=== PATIENT | female | born 1975 | race Caucasian/White ===

== ENCOUNTER 2016-02-28 09:51 | Emergency (ER) | payer MEDICAID ==
[~2016-02-28] VITALS: Ht 157.5 cm; Wt 55.0 kg
[~2016-02-28 09:51] MED LIST: ALBU8.5H3 INH; BENZ100C70 PO; CYCL-319 PO; FLUT9.9S NASAL; HYDR-906 PO; IBUP-1542 PO; PSEU30TA38 PO
[2016-02-28 10:02] VITALS: Ht 157.5 cm; Wt 55.0 kg
[2016-02-28] MEDS ORDERED: IBUP-1542 PO (10:27)
--- NOTE | 2016-02-28 10:30 | ERD ---
ER Documentation Chief Complaint Date/Time DATE: 02/28/16 TIME: 10:29 Chief Complaint back pain chronic cough had PNA in january HPI 40-year-old female presents the emergency department complaining of low back pain. Patient states she has a long-standing history of scoliosis. Yesterday, after bending down to pick something up, she feels as if she exacerbated her low back pain. She reports isolated low back pain without radiation. She reports no numbness, tingling, fevers, chills, bowel or bladder incontinence. She currently reports the pain is moderate to severe. ROS All systems reviewed and are negative except as per history of present illness. Medications Home Meds Active Scripts Ibuprofen* (Motrin*) 600 Mg Tab, 600 MG PO Q6H Y for PAIN AND OR ELEVATED TEMP, #30 TAB Prov:NERY JOSEPH 02/28/16 Ibuprofen* (Motrin*) 600 Mg Tab, 600 MG PO Q6H Y for PAIN AND OR ELEVATED TEMP, #30 TAB Prov:CHRISTINE HERNANDEZ NP 12/06/15 Cyclobenzaprine Hcl* (Cyclobenzaprine Hcl*) 10 Mg Tablet, 10 MG PO TID, #15 TAB Prov:CHRISTINE HERNANDEZ NP 12/06/15 Hydrocodone/Acetaminophen ([place] 5-325 Tablet) 1 Each Tablet, 1 TAB PO Q6H Y for PAIN, #7 TAB Prov:CHRISTINE HERNANDEZ NP 12/06/15 Albuterol Sulfate* (Proair HFA*) 8.5 Gm Hfa.aer.ad, 2 PUFF INH Q4, #1 INHALER Prov:GENE SMITH PA-C 03/06/15 Benzonatate* (Tessalon Perle*) 100 Mg Capsule, 100 MG PO Q8H Y for COUGH, #30 CAP Prov:GENE SMITH PA-C 03/06/15 Fluticasone Propionate (Flonase Allergy Relief) 9.9 Ml [place].susp, 1 SPRAY NASAL DAILY, #1 BOTTLE TO EACH NOSTRIL Prov:GENE SMITH PA-C 03/06/15 Pseudoephedrine Hcl* (Pseudoephedrine Hcl*) 30 Mg Tablet, 30 MG PO Q6 Y for CONGESTION, #30 TAB Prov:GENE SMITH PA-C 03/06/15 Allergies Allergies: Coded Allergies: No Known Allergies (Verified Allergy, Mild, 03/29/14) PMhx/Soc History of Surgery: No Anesthesia Reaction: No Hx Neurological Disorder: No Hx Respiratory Disorders: Yes (ASTHMA; SCOLIOSIS.) Hx Cardiac Disorders: No Hx Psychiatric Problems: Yes (ANXIETY) Hx Miscellaneous Medical Probl: No Hx Alcohol Use: Yes Hx Substance Use: No Hx Tobacco Use: Yes FmHx Noncontributory for chief complaint Physical Exam Vitals Vital Signs Date Time Temp Pulse Resp B/P Pulse Ox O2 Delivery O2 Flow Rate FiO2 02/28/16 10:02 97.9 129 18 162/108 99 Physical Exam General: well developed, well nourished, in no distress. Neuro: Normal speech, gait, balance Back: No midline spinal tenderness or spasm. No step-off. Procedures/MDM Patient was taken to a room, seen and evaluated. Comfort measures were initiated. Patient was taken to a room, seen and examined Medical decision making: Patient presents today with atraumatic back pain. Although infection, malignancy, GI, , and vascular causes have been considered in this patient, the patients clinical presentation is most consistent with a musculoskeletal cause. There is neither evidence of any acute neurologic damage, nor of loss of function and thus, advanced imaging studies have been deferred. Patient will be treated conservatively with appropriate pain control with precautionary discharge instructions provided. Departure Diagnosis: Primary Impression: Back pain Condition: Stable Patient Instructions: Back Pain (Acute Or Chronic) NERY JOSEPH Feb 28, 2016 10:30
== END 2016-02-28 11:06 | disposition home or self-care (01) ==
LOC: E/R 09:51
DX: M54.5 Low back pain (principal); J45.909 Unspecified asthma, uncomplicated; Z87.891 Personal history of nicotine dependence
CPT/HCPCS: 99283

== ENCOUNTER 2016-03-15 08:45 | Emergency (ER) | payer MEDICAID ==
[~2016-03-15] VITALS: Wt 64.0 kg
--- NOTE | 2016-03-15 09:45 | ERD ---
ER Documentation Chief Complaint Date/Time DATE: 03/15/16 TIME: 09:30 Chief Complaint vag bleeding since this morning. early . no dysuria , low abd pain HPI 40 y/o female presents to ED for vaginal bleeding and lower abdominal cramping. Her symptoms started this morning. Stated that she saw a "watery blood " that came out of her vaginal area. Pain was described as crampy and nonradiating, with a rate of 10/10 at this time. Found out that she is yesterday when she did a home test. Then she went to a mother's clinic. Was told that she is . No ultrasound was done. Also added that she has chills but never took her temp at home. Also reports constipation for about 5 days. Denies headache, loss of consciousness, dizziness, blurry vision, changes in vision, photophobia, facial pain, ear pain, throat pain, difficulty swallowing, neck pain, shoulder pain, chest pain, cough, hemoptysis, back pain, loss of appetite, nausea, vomiting, hematochezia, diarrhea, bladder and bowel incontinences, extremity weakness, extremity tenderness, numbness or tingling sensation, difficulty walking, recent travel, recent exposure to illness, recent antibiotic use in the last 3 months, fever. Allergy: NKA PMH: Asthma, scoliosis. Family medical history: G13(approximately)M2(one was twins). Unclear of number of pregnancies. LMP: 01/05/16 Medications: States that she is not taking any medications at this time. Surgery: C-sections 2 Primary Social History: Student Smokes less than a pack of cigarettes a day. Denies use of alcohol, use of illegal drugs. ROS All systems reviewed and are negative except as per history of present illness. Medications Home Meds Active Scripts Acetaminophen* (Tylenol*) 325 Mg Tablet, 2 TAB PO Q6 Y for prn, #20 TAB Prov:SYDNEY BONE F 03/15/16 Cephalexin* (Keflex*) 500 Mg Capsule, 500 MG PO QID for 7 Days, CAP Prov:PASILABAN,KENJIAR F 03/15/16 Ibuprofen* (Motrin*) 600 Mg Tab, 600 MG PO Q6H Y for PAIN AND OR ELEVATED TEMP, #30 TAB Prov:NERY JOSEPH 02/28/16 Ibuprofen* (Motrin*) 600 Mg Tab, 600 MG PO Q6H Y for PAIN AND OR ELEVATED TEMP, #30 TAB Prov:CHRISTINE HERNANDEZ NP 12/06/15 Cyclobenzaprine Hcl* (Cyclobenzaprine Hcl*) 10 Mg Tablet, 10 MG PO TID, #15 TAB Prov:CHRISTINE HERNANDEZ NP 12/06/15 Hydrocodone/Acetaminophen ([place] 5-325 Tablet) 1 Each Tablet, 1 TAB PO Q6H Y for PAIN, #7 TAB Prov:CHRISTINE HERNANDEZ NP 12/06/15 Albuterol Sulfate* (Proair HFA*) 8.5 Gm Hfa.aer.ad, 2 PUFF INH Q4, #1 INHALER Prov:GENE SMITH PA-C 03/06/15 Benzonatate* (Tessalon Perle*) 100 Mg Capsule, 100 MG PO Q8H Y for COUGH, #30 CAP Prov:GENE SMITH PA-C 03/06/15 Fluticasone Propionate (Flonase Allergy Relief) 9.9 Ml [place].susp, 1 SPRAY NASAL DAILY, #1 BOTTLE TO EACH NOSTRIL Prov:GENE SMITH PA-C 03/06/15 Pseudoephedrine Hcl* (Pseudoephedrine Hcl*) 30 Mg Tablet, 30 MG PO Q6 Y for CONGESTION, #30 TAB Prov:GENE SMITH PA-C 03/06/15 Allergies Allergies: Coded Allergies: No Known Allergies (Verified Allergy, Mild, 03/15/16) PMhx/Soc History of Surgery: No Anesthesia Reaction: No Hx Neurological Disorder: No Hx Respiratory Disorders: Yes (ASTHMA; SCOLIOSIS.) Hx Cardiac Disorders: No Hx Psychiatric Problems: Yes (ANXIETY) Hx Miscellaneous Medical Probl: No Hx Alcohol Use: Yes Hx Substance Use: No Hx Tobacco Use: Yes FmHx Denies Physical Exam Vitals Vital Signs Date Time Temp Pulse Resp B/P Pulse Ox O2 Delivery O2 Flow Rate FiO2 03/15/16 08:48 98.8 102 18 130/95 99 Physical Exam CONSTITUTIONAL: Well-appearing; well-nourished; in no apparent distress. HEAD: Normocephalic; atraumatic. EYES: Conjunctiva clear, sclera non-icteric, EOM intact. PERRL Ears: Hearing intact. EACs clear, TMs non-bulging, non-inflamed, translucent & mobile, ossicles normal appearance, No obstructions, no erythema, no discharges Nose: No obstructions. No polyps. No external lesions. Mucosa non-inflamed. No external lesions, septum and turbinates normal. No rhinorrhea. No discharges. Frontal sinus is non-tender to palpation. Maxillary sinus is non-tender to palpation. MOUTH: Moist mucous membranes, no lesion, no obstructions, no vesicles, no thrush, patent airway Throat: Uvula in midline. Right tonsil is +1 with no erythema, no exudate. Left tonsil is +1 with no erythema, no exudate. Tolerating secretions well. Good gag reflex. Patent airway. Neck: Supple, without lesions, bruits, or adenopathy. No mass. Thyroid non- enlarged and non-tender to palpation. CHEST: Symmetrical chest. Respirations even and not labored. No retractions noted. CARDIOVASCULAR: Normal S1, S2. RRR. No murmurs, gallops. RESPIRATORY: Normal chest excursion with respiration; breath sounds clear and equal bilaterally; no wheezes, rhonchi, or rales. Breathing even and unlabored. Speaking in clear, full, and complete sentences w/ ease. ABDOMEN: Normal bowel sounds normal. Tenderness to lower abdominal area on light and deep palpation. Soft, round, non-distended, non-guarding, no rebound, no organomegaly, no masses, no pulsating abdominal mass. No hernia. No peritoneal signs. : No CVA tenderness. BACK: Symmetrical shoulder. Spine is midline without deformity, tenderness. No evidence of trauma or deformity. PELVIS: Stable pelvis. No evidence of trauma or deformity. MUSCULOSKELETAL: Normal gait and station. No misalignment, asymmetry, crepitation, defects, tenderness, masses, effusions, decreased range of motion, instability, atrophy or abnormal strength or tone in the head, neck, spine, ribs , pelvis or extremities. No calf tenderness. NEUROVASCULAR: Distal pulses are present. Pedal pulse are present, equal, and normal. Capillary refills are < 2 seconds. NEUROLOGIC: Alert and oriented x4. Speaks full and clear sentences. Cranial Nerves II-XII normal. Sensation to pain, touch, and proprioception normal. PSYCHOLOGICAL: The patients mood and manner are appropriate. No hallucinations , delusions. Not SI. Not HI. Has the capacity to decide for self SKIN: Normal for age and ethnicity; warm; dry; good turgor; no apparent lesions or exudates. No rashes, hives, discoloration. Intact. Result Diagram: 03/15/16 0953 Results 24 hrs Laboratory Tests Test 03/15/16 09:53 Basophils # 0.110^3/ul Basophils % 0.5% Beta HCG, Quantitative 18507.0mIU/ml Blood Morphology Comment Eosinophils # 0.110^3/ul Eosinophils % 0.9% Hematocrit 41.0% Hemoglobin 13.6g/dl Lymphocytes # 1.410^3/ul Lymphocytes % 8.7% Mean Corpuscular Hemoglobin 27.6pg Mean Corpuscular Hemoglobin Concent 33.1g/dl Mean Corpuscular Volume 83.4fl Mean Platelet Volume 9.1fl Monocytes # 0.810^3/ul Monocytes % 5.3% Neutrophils # 13.310^3/ul Neutrophils % 84.6% Nucleated Red Blood Cells # 0.010^3/ul Nucleated Red Blood Cells % 0.0/100WBC Platelet Count 27042^3/UL Red Blood Count 4.9110^6/ul Red Cell Distribution Width 13.9% Urine Bacteria FEW Urine Bilirubin NEGATIVE Urine Clarity CLEAR Urine Color LT. YELLOW Urine Epithelial Cells FEW Urine Glucose NEGATIVE% Urine Hemoglobin 3+ Urine Ketones NEGATIVE Urine Leukocyte Esterase 2+ Urine Microscopic RBC 0-2/HPF Urine Microscopic WBC 5-10/HPF Urine Nitrite NEGATIVE Urine Specific [place] <=1.005 Urine Total Protein NEGATIVE Urine Urobilinogen 0.2 E.U./dL Urine pH 6.0 White Blood Count 15.810^3/ul Procedures/MDM Examination: Unremarkable examination except lower abdominal tenderness on mild and deep palpation. Disease process, medical treatment was explained to the patient and family member. They verbalized understanding and agreed with the diagnostic tests, medical treatment, and follow-up care. Radiology: Transabdominal, pelvis ultrasound revealed single intrauterine gestation with crown-rump length measuring 1.0 cm, corresponding to a gestational age of 7 weeks and 2 days. The heart rate is noted at 156 bpm. The ovaries are not visualized. There is no free fluid. Impression: Single live intrauterine with an estimated gestational age of 7 weeks and 2 days, based on ultrasound measurements. Blood works unremarkable except mildly elevated [place]BCs[place] [address].0 mIUL. Blood type O negative Urinalysis: WBCs 5-10 leukocytes 2+. Treatment: Tylenol p.o. RhoGam. No reactions. Tolerated well. Re-evaluation: Patient relieved the pain. Denies active bleeding. Consultation: None Differential diagnosis considered are Ectopic versus demise versus vaginal bleeding, symptomatic anemia,, pyelonephritis, appendicitis, ovarian torsion, tubo-ovarian abscess. Medical decision makin40 y/o female presents to ED for vaginal bleeding and lower abdominal cramping. Her symptoms started this morning. Stated that she saw a "watery blood" that came out of her vaginal area. Pain was described as crampy and nonradiating, with a rate of 10/10 at this time. Found out that she is yesterday when she did a home test. Then she went to a mother's clinic. Was told that she is . No ultrasound was done yesterday. Also added that she has chills but never took her temp at home. Also reports constipation for about 5 days. Blood works unremarkable except mildly elevated WBCs, O-negative on blood type(Rhogam ordered and administered). Urinalysis revealed 5-10 WBCs, 2+ leukocytes[place] [address].0 mIUL. Low suspicion for ectopic , demise, symptomatic anemia,, pyelonephritis, appendicitis, ovarian torsion, tubo-ovarian abscess. Discharged with final diagnosis of vaginal bleeding in , urinary tract infection. Medications prescribed are the following: Keflex PO,Tylenol Patient and family member are made aware of the side effects and adverse reactions of the medications prescribed. Instructed on when to seek emergent and medical attention in case allergic/anaphylactic reactions or severe side effects and or adverse reactions to medications. Patient and family member verbalized understanding. Patient instructed Instructed to follow-up with his PCP in 24-48 hours. PCP to refer patient to OB 24-48 hours. Also specifically instructed to have her beta hCG quant re-check in 48 hours. Patient stated that she will see her OB in the next 24-48 hours. Instructed to Call 911 for chest pain, shortness of breath. Advised to come back here in ED as soon as possible for severity of symptoms which includes but not limited to: any new symptoms; shortness of breath/difficulty of breathing; cardiovascular changes; severe gastrointestinal symptoms; signs and symptoms of bleeding and or infection; signs of compartment syndrome/neurovascular changes; neurological changes/deficits. Patient and family member verbalized understanding. Upon discharge, patient is alert and oriented x 4, speaks full and clear sentences, denies pain, has no neurological deficits, has no neurovascular deficits, difficulty of breathing. Breathing even and unlabored. Lung sounds are clear to auscultation. Not in distress. No abdominal pain. No active bleeding. Appears comfortable. Ambulatory with steady gait. Appears satisfied with care provided here in ED. Departure Condition: Good Additional Instructions: Patient instructed Instructed to follow-up with his PCP in 24-48 hours. PCP to refer patient to OB 24-48 hours. Also specifically instructed to have her beta hCG quant re-check in 48 hours. Patient stated that she will see her OB in the next 24-48 hours. Instructed to Call 911 for chest pain, shortness of breath. Advised to come back here in ED as soon as possible for severity of symptoms which includes but not limited to: any new symptoms; shortness of breath/difficulty of breathing; cardiovascular changes; severe gastrointestinal symptoms; signs and symptoms of bleeding and or infection; signs of compartment syndrome/neurovascular changes; neurological changes/deficits. Patient and family member verbalized understanding. SYDNEY BONE Mar 15, 2016 09:45
[2016-03-15 10:19] LABS: BASOPHIL # 0.1 10^3/ul (0.0-0.1); BASOPHILS % 0.5 % (0.0-2.0); EOSINOPHILS # 0.1 10^3/ul (0.0-0.5); EOSINOPHILS % 0.9 % (0.0-7.0); HEMOGLOBIN 13.6 g/dl (12.0-16.0); LYMPHOCYTES # 1.4 10^3/ul (0.8-2.9); LYMPHOCYTES % 8.7 % (15.0-51.0); MEAN CORPUSCULAR HEMOGLOBIN 27.6 pg (29.0-33.0); MEAN CORPUSCULAR HGB CONC 33.1 g/dl (32.0-37.0); MEAN CORPUSCULAR VOLUME 83.4 fl (82.0-101.0); MEAN PLATELET VOLUME 9.1 fl (7.4-10.4); MONOCYTE # 0.8 10^3/ul (0.3-0.9); MONOCYTES % 5.3 % (0.0-11.0); NEUTROPHIL # 13.3 10^3/ul (1.6-7.5); NEUTROPHILS % 84.6 % (39.0-77.0); PLATELET COUNT 256 10^3/UL (140-440); RED BLOOD COUNT 4.91 10^6/ul (4.20-5.40); RED CELL DISTRIBUTION WIDTH 13.9 % (11.5-14.5); UNCORRECTED WBC 15.8 10^3/ul (4.8-10.8); WHITE BLOOD COUNT 15.8 10^3/ul (4.8-10.8)
[2016-03-15 10:28] LABS: ADD UMIC YES; URINE BILIRUBIN (Dip) NEGATIVE (NEGATIVE); URINE BLOOD (Dip) 3+ (NEGATIVE); URINE COLOR LT. YELLOW (YELLOW); URINE GLUCOSE (Dip) NEGATIVE (NEGATIVE); URINE KETONES (Dip) NEGATIVE (NEGATIVE); URINE LEUKOCYTE ESTERASE (Dip) 2+ (NEGATIVE); URINE NITRITE (Dip) NEGATIVE (NEGATIVE); URINE TOTAL PROTEIN (Dip) NEGATIVE (NEGATIVE); URINE UROBILINOGEN (Dip) 0.2 E.U./dL (0.1-1.0)
[2016-03-15 10:29] LABS: CONDITION 1
--- NOTE | 2016-03-15 10:32 | RADRPT ---
PROCEDURE: US OB. CLINICAL INDICATION: Vaginal bleeding TECHNIQUE: Transabdominal views of the pelvis are available for review. COMPARISON: No prior studies are available for comparison. FINDINGS: There is a single intrauterine gestation with the crown-rump length measuring 1.0 cm, corresponding to a gestational age of 7 weeks and 2 days. The heart rate is noted at 156 bpm. The ovaries are not visualized. There is no free fluid. RPTAT: AA IMPRESSION: Single live intrauterine with an estimated gestational age of 7 weeks and 2 days, based on ultrasound measurements. MORE based on ultrasound measurements is 10/30/16. .Souleymane Gallegos MD, MD Date Time Electronically viewed and signed by .Souleymane Gallegos MD, on 03/15/2016 10:32 .S/
[2016-03-15 11:07] LABS: URINE RBCS 0-2 /HPF (0)
[2016-03-15 11:08] LABS: BACTERIA,URINE FEW
[2016-03-15] MEDS ORDERED: CEPH-443 PO (11:32)
[2016-03-15] MEDS ORDERED: ACET325T33 PO (11:37)
[2016-03-15 12:02] VITALS: BP 125/88; PULSE 66; RESP 18; TEMP 98.8
== END 2016-03-15 12:02 | disposition home or self-care (01) ==
LOC: FTE 08:45
DX: O20.9 Hemorrhage in early pregnancy, unspecified (principal); O99.331 Smoking (tobacco) complicating pregnancy, first trimester; F17.210 Nicotine dependence, cigarettes, uncomplicated; O99.511 Diseases of the respiratory system complicating pregnancy, first trimester; J45.909 Unspecified asthma, uncomplicated; O23.41 Unspecified infection of urinary tract in pregnancy, first trimester; Z3A.01 Less than 8 weeks gestation of pregnancy
CPT/HCPCS: 36415; 76801; 81001; 84702; 85025; 86900; 86901; J2790; Z7502; 81003

== ENCOUNTER 2016-06-01 11:14 | Emergency (ER) | payer MEDICAID, OTHER ==
[~2016-06-01] VITALS: Ht 162.6 cm; Wt 60.0 kg
[~2016-06-01 11:14] MED LIST changes: +ACET325T33 PO; +CEPH-443 PO
[2016-06-01 11:20] VITALS: Ht 162.6 cm; Wt 60.0 kg
[2016-06-01 12:19] LABS: ADD SCAN DIFF NO
[2016-06-01 12:24] LABS: ADD UMIC YES; BASOPHIL # 0.1 10^3/ul (0.0-0.1); BASOPHILS % 0.6 % (0.0-2.0); EOSINOPHILS # 0.2 10^3/ul (0.0-0.5); EOSINOPHILS % 1.1 % (0.0-7.0); LYMPHOCYTES # 2.3 10^3/ul (0.8-2.9); LYMPHOCYTES % 16.5 % (15.0-51.0); MEAN CORPUSCULAR HEMOGLOBIN 29.5 pg (29.0-33.0); MEAN CORPUSCULAR HGB CONC 33.3 g/dl (32.0-37.0); MEAN CORPUSCULAR VOLUME 88.4 fl (82.0-101.0); MEAN PLATELET VOLUME 10.3 fl (7.4-10.4); MONOCYTE # 0.8 10^3/ul (0.3-0.9); NEUTROPHIL # 10.6 10^3/ul (1.6-7.5); NEUTROPHILS % 75.3 % (39.0-77.0); PLATELET COUNT 360 10^3/UL (140-415); RED BLOOD COUNT 4.41 10^6/ul (4.20-5.40); RED CELL DISTRIBUTION WIDTH 13.2 % (11.5-14.5); URINE BILIRUBIN (Dip) NEGATIVE (NEGATIVE); URINE BLOOD (Dip) TRACE (NEGATIVE); URINE COLOR LT. YELLOW (YELLOW); URINE GLUCOSE (Dip) NEGATIVE (NEGATIVE); URINE KETONES (Dip) NEGATIVE (NEGATIVE); URINE LEUKOCYTE ESTERASE (Dip) 2+ (NEGATIVE); URINE NITRITE (Dip) NEGATIVE (NEGATIVE); URINE TOTAL PROTEIN (Dip) NEGATIVE (NEGATIVE); URINE UROBILINOGEN (Dip) 0.2 E.U./dL (0.1-1.0)
[2016-06-01 12:28] LABS: URINE RBCS 0-2 /HPF (0)
--- NOTE | 2016-06-01 13:26 | RADRPT ---
PROCEDURE: US OB CLINICAL INDICATION: Vaginal Bleed () TECHNIQUE: Multiple sonographic images of the pelvis were obtained. The images were reviewed on a PACS workstation. COMPARISON: Obstetrical ultrasound from 03/15/2016 FINDINGS: The cervix is not well visualized. Bilateral adnexa are unremarkable. There is a single viable intrauterine gestation. Cardiac activity is present with 152 beats per minute. There is a vertex presentation. The placenta is anterior. There is no evidence for an abruption or placenta previa. There is a normal amount of amniotic fluid with in maximum vertical pocket of 4.5 cm. Measurements were made in order to determine age. The results are as follows (cm): BPD =4.12 HC =15.45 AC =13.95 FL =2.78 Estimated gestational age by ultrasound of approximately 18 weeks, 5 days. The estimated date of delivery by ultrasound is 10/28/2016. Reported gestational age by LMP of approximately 18 weeks, 2 days. The report date of delivery by LMP is eased 10/31/2016. EFW = 262 grams (80th percentile) IMPRESSION: Single viable intrauterine gestation of approximately 18 weeks, 5 days . The estimated date of delivery is 10/28/2016 . Dating by ultrasound is within 3 days of dating by LMP. Estimated weight is in the 80th percentile. Anterior placenta without evidence of a placental abruption or placenta previa. RPTAT: EE Physician Mane Date Time Electronically viewed and signed by Physician Mane on 06/01/2016 13:25 /
[2016-06-01] MEDS ORDERED: CEPH-443 PO (14:08)
[2016-06-01] MEDS ORDERED: ACET500C5 PO (14:08)
--- NOTE | 2016-06-01 14:21 | ERD ---
ER Documentation Chief Complaint Date/Time DATE: 06/01/16 TIME: 14:13 Chief Complaint pt bib family with c/o vag bleeding starting this am, approx 15 wks pregnan HPI Patient is a 40-year-old female with a past medical history of asthma, G 13 M2?, approximately 15 weeks , who comes emergency department with vaginal bleeding that started this morning. Patient reports some vaginal spotting and pelvic cramping. Patient denies any pad use. Patient also does report some intermittent fevers and chills however she is currently fighting a URI. Patient reports a dry cough, rhinorrhea and mild throat irritation. Patient denies any trismus, drooling or hyperextension of her neck. Patient denies any nausea, vomiting, chest pain, shortness of breath, abdominal pain, excessive vaginal discharge. Patient reports normal bowel movements. Patient denies any pain with urination. Patient has been care throughout her . 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 Of note, patient was seen here on 03/15/16 her vaginal bleeding. Patient was noted to be Rh- at that time. Patient was given RhoGam at that time. Documentation noted in the patient's chart. ROS All systems reviewed and are negative except as per history of present illness. Medications Home Meds Active Scripts Cephalexin* (Keflex*) 500 Mg Capsule, 500 MG PO QID for 7 Days, CAP Prov:DANA BATRES-C 06/01/16 Acetaminophen* (Tylophen*) 500 Mg Capsule, 1 CAP PO Q6H Y for PAIN AND OR ELEVATED TEMP, #20 CAP Prov:DANA BATRES PA-C 06/01/16 Acetaminophen* (Tylenol*) 325 Mg Tablet, 2 TAB PO Q6 Y for prn, #20 TAB Prov:PASILABAN,KLAR F 03/15/16 Cephalexin* (Keflex*) 500 Mg Capsule, 500 MG PO QID for 7 Days, CAP Prov:PASILABAN,KLAR F 03/15/16 Ibuprofen* (Motrin*) 600 Mg Tab, 600 MG PO Q6H Y for PAIN AND OR ELEVATED TEMP, #30 TAB Prov:NERY JOSEPH 02/28/16 Ibuprofen* (Motrin*) 600 Mg Tab, 600 MG PO Q6H Y for PAIN AND OR ELEVATED TEMP, #30 TAB Prov:CUISIA,CHRISTINE LOU T. LCSW 12/06/15 Cyclobenzaprine Hcl* (Cyclobenzaprine Hcl*) 10 Mg Tablet, 10 MG PO TID, #15 TAB Prov:CHRISTINE HERNANDEZ NP 12/06/15 Hydrocodone/Acetaminophen ([place] 5-325 Tablet) 1 Each Tablet, 1 TAB PO Q6H Y for PAIN, #7 TAB Prov:CHRISTINE HERNANDEZ NP 12/06/15 Albuterol Sulfate* (Proair HFA*) 8.5 Gm Hfa.aer.ad, 2 PUFF INH Q4, #1 INHALER Prov:GENE SMITH PA-C 03/06/15 Benzonatate* (Tessalon Perle*) 100 Mg Capsule, 100 MG PO Q8H Y for COUGH, #30 CAP Prov:GENE SMITH PA-C 03/06/15 Fluticasone Propionate (Flonase Allergy Relief) 9.9 Ml [place].susp, 1 SPRAY NASAL DAILY, #1 BOTTLE TO EACH NOSTRIL Prov:GENE SMITH PA-C 03/06/15 Pseudoephedrine Hcl* (Pseudoephedrine Hcl*) 30 Mg Tablet, 30 MG PO Q6 Y for CONGESTION, #30 TAB Prov:GENE SMITH PA-C 03/06/15 Allergies Allergies: Coded Allergies: No Known Allergies (Verified Allergy, Mild, 03/15/16) PMhx/Soc History of Surgery: No Anesthesia Reaction: No Hx Neurological Disorder: No Hx Respiratory Disorders: Yes (ASTHMA; SCOLIOSIS.) Hx Cardiac Disorders: No Hx Psychiatric Problems: Yes (ANXIETY) Hx Miscellaneous Medical Probl: No Hx Alcohol Use: Yes Hx Substance Use: No Hx Tobacco Use: Yes Smoking Status: Never smoker Physical Exam Vitals Vital Signs Date Time Temp Pulse Resp B/P Pulse Ox O2 Delivery O2 Flow Rate FiO2 06/01/16 11:20 98.3 117 18 151/95 99 Physical Exam GENERAL: Well-developed, well-nourished female. Appears in no acute distress. HEAD: Normocephalic, atraumatic. EYES: Pupils are equally reactive bilaterally. EOMs grossly intact. No conjunctival erythema. ENT: Moist mucous membranes. No uvula deviation. No kissing tonsils. NECK: Supple. No meningismus. Normal range of motion of the neck. LUNG: Clear to auscultation bilaterally. No rhonchi, wheezing, rales or coarse breath sounds. HEART: Regular rate and rhythm. No murmurs, rubs or gallops. ABDOMEN: No scars, ecchymosis or rashes noted. Soft, nontender, and nondistended. Positive bowel sounds in all four quadrants. No rebound tenderness , no guarding. (-) McBurney's point tenderness. No CVA tenderness. BACK: No midline tenderness. EXTREMITIES: Equal pulses bilaterally. No peripheral clubbing, cyanosis or edema. No unilateral leg swelling. NEUROLOGIC: Alert and oriented. Moving all four extremities without any difficulty. Normal speech. Steady gait. SKIN: Normal color. Warm and dry. No rashes or lesions. Result Diagram: 06/01/16 1205 Results 24 hrs Laboratory Tests Test 06/01/16 12:05 White Blood Count 14.010^3/ul Red Blood Count 4.4110^6/ul Hemoglobin 13.0g/dl Hematocrit 39.0% Mean Corpuscular Volume 88.4fl Mean Corpuscular Hemoglobin 29.5pg Mean Corpuscular Hemoglobin Concent 33.3g/dl Red Cell Distribution Width 13.2% Platelet Count 79459^3/UL Mean Platelet Volume 10.3fl Neutrophils % 75.3% Lymphocytes % 16.5% Monocytes % 6.0% Eosinophils % 1.1% Basophils % 0.6% Nucleated Red Blood Cells % 0.0/100WBC Neutrophils # 10.610^3/ul Lymphocytes # 2.310^3/ul Monocytes # 0.810^3/ul Eosinophils # 0.210^3/ul Basophils # 0.110^3/ul Nucleated Red Blood Cells # 0.010^3/ul Urine Color LT. YELLOW Urine Clarity SLIGHTLY CLOUDY Urine pH 7.0 Urine Specific [place] 1.010 Urine Ketones NEGATIVE Urine Nitrite NEGATIVE Urine Bilirubin NEGATIVE Urine Urobilinogen 0.2 E.U./dL Urine Leukocyte Esterase 2+ Urine Microscopic RBC 0-2/HPF Urine Microscopic WBC 5-10/HPF Urine Epithelial Cells FEW Urine Hemoglobin TRACE Urine Glucose NEGATIVE% Urine Total Protein NEGATIVE Beta HCG, Quantitative 85840.0mIU/ml Procedures/MDM ED COURSE: The patient was stable throughout ED course. I kept the patient and/or family informed of laboratory and diagnostic imaging results throughout the ED course. DIAGNOSTIC IMAGING: Read by radiologist. DIAGNOSTIC IMAGING REPORT Patient: NANCY HURST : 1975 Age: 40 Sex: F MR #: [id number] DOS: 06/01/16 1156 Ordering MD: DANA BATRES PA-C Location: [facility] Room/Bed: PROCEDURE: US OB CLINICAL INDICATION: Vaginal Bleed () TECHNIQUE: Multiple sonographic images of the pelvis were obtained. The images were reviewed on a PACS workstation. COMPARISON: Obstetrical ultrasound from 03/15/2016 FINDINGS: The cervix is not well visualized. Bilateral adnexa are unremarkable. There is a single viable intrauterine gestation. Cardiac activity is present with 152 beats per minute. There is a vertex presentation. The placenta is anterior. There is no evidence for an abruption or placenta previa. There is a normal amount of amniotic fluid with in maximum vertical pocket of 4.5 cm. Measurements were made in order to determine age. The results are as follows (cm): BPD = 4.12 HC = 15.45 AC = 13.95 FL = 2.78 Estimated gestational age by ultrasound of approximately 18 weeks, 5 days. The estimated date of delivery by ultrasound is 10/28/2016. Reported gestational age by LMP of approximately 18 weeks, 2 days. The report date of delivery by LMP is eased 10/31/2016. EFW = 262 grams (80th percentile) IMPRESSION: Single viable intrauterine gestation of approximately 18 weeks, 5 days . The estimated date of delivery is 10/28/2016 . Dating by ultrasound is within 3 days of dating by LMP. Estimated weight is in the 80th percentile. Anterior placenta without evidence of a placental abruption or placenta previa. RPTAT: EE Physician Mane Date Time Electronically viewed and signed by Rafat Coello Physician on 06/01/2016 13:25 RA/ CC: DANA BATRES PA-C PROCEDURES: None. MEDICAL DECISION MAKING: This is a 40-year-old female who presents with vaginal spotting. Vital signs were reviewed. Patient was afebrile. Patient was hemodynamically stable. Urine test was positive. Quantitative b-HCG today was [address]. BHCG was noted to be decreased compared to previous visit. This may be a normal related finding vs signs of threatened . Patient was noted to be Rh- however she was given RhoGam at her previous visit in Feb 2016 and was noted to only have vaginal spotting at this time. I discussed the patient's Rh status with my supervising physician , Dr. Lou, who agreed that there was no indication for additional RhoGam at this time. CBC showed no evidence of severe anemia. Patient was noted to have a white count of 14.0. Elevated WBC count likely due to current viral URI vs state. Pelvic US showed Single viable intrauterine gestation of approximately 18 weeks, 5 days. Anterior placenta without evidence of a placental abruption or placenta previa. UA showed 5-10 WBC, 2+ leukocyte esterase. Given these findings, the patient's presentation is most consistent with viable IUP vs threatened and UTI. Unable to rule out spontaneous at this time. I have a much lower clinical concern for ectopic , ruptured ectopic , molar , subchorionic hematoma, demise, incomplete , complete , missed , placental abruption, placental previa, vasa previa, uterine rupture, anembyronic . PRESCRIPTIONS: Tylenol, Keflex DISCHARGE: At this time, patient is stable for discharge and outpatient management. I had a conversation at length with the patient about the concerns of vaginal bleeding during . Patient and/or family understands that her vaginal bleeding can be a normal finding or a sign of miscarriage. I have instructed the patient to follow-up with her OBGYN in 1-2 days for further monitoring including a repeat b-HCG level and repeat US. Patient also advised to see OBGYN MAHIN about Rh (-) factor findings. I have instructed the patient to promptly return to the ER at any time for any new or worsening symptoms including increased pain, nausea, vomiting, continued bleeding, weakness, syncope or fever. The patient and/or family expressed understanding of and agreement with this plan. All questions were answered. Home care instructions were provided. Departure Diagnosis: Primary Impression: Vaginal bleeding before 22 weeks gestation Additional Impression: UTI (urinary tract infection) Urinary tract infection type: site unspecified Hematuria presence: without hematuria Qualified Code: N39.0 - Urinary tract infection without hematuria, site unspecified Condition: Stable Patient Instructions: Understanding Urinary Tract Infections (UTIs), When Your Child Has a Urinary Tract Infection (UTI) Referrals: [facility] YOU HAVE RECEIVED A MEDICAL SCREENING EXAM AND THE RESULTS INDICATE THAT YOU DO NOT HAVE A CONDITION THAT REQUIRES URGENT TREATMENT IN THE EMERGENCY DEPARTMENT. FURTHER EVALUATION AND TREATMENT OF YOUR CONDITION CAN WAIT UNTIL YOU ARE SEEN IN YOUR DOCTORS OFFICE WITHIN THE NEXT 1-2 DAYS. IT IS YOUR RESPONSIBILITY TO MAKE AN APPOINTMENT FOR FOLOW-UP CARE. IF YOU HAVE A PRIMARY DOCTOR --you should call your primary doctor and schedule an appointment IF YOU DO NOT HAVE A PRIMARY DOCTOR YOU CAN CALL OUR PHYSICIAN REFERRAL HOTLINE AT IF YOU CAN NOT AFFORD TO SEE A PHYSICIAN YOU CAN CHOSE FROM THE FOLLOWING [facility] [address] [facility] [address] [facility]. [facility] [address] [facility] [address] [facility] [address] [facility]. [facility] [address] [facility]. [facility] YOU HAVE RECEIVED A MEDICAL SCREENING EXAM AND THE RESULTS INDICATE THAT YOU DO NOT HAVE A CONDITION THAT REQUIRES URGENT TREATMENT IN THE EMERGENCY DEPARTMENT. FURTHER EVALUATION AND TREATMENT OF YOUR CONDITION CAN WAIT UNTIL YOU ARE SEEN IN YOUR DOCTORS OFFICE WITHIN THE NEXT 1-2 DAYS. IT IS YOUR RESPONSIBILITY TO MAKE AN APPOINTMENT FOR FOLOW-UP CARE. IF YOU HAVE A PRIMARY DOCTOR --you should call your primary doctor and schedule and appointment IF YOU DO NOT HAVE A PRIMARY DOCTOR YOU CAN CALL OUR PHYSICIAN REFERRAL HOTLINE AT . IF YOU CAN NOT AFFORD TO SEE A PHYSICIAN YOU CAN CHOSE FROM THE FOLLOWING [facility] INSTITUTIONS: [address] [place] [address] [facility] [address] [place] [address] [facility] [address] [place] [address] [employer]TE[employer] [place] [address] [facility] [address] [place] [address] OFFICE FAX , GARY [address] [place] [address] [address] [facility] [address] [place] [address] [address] KHALIL, [facility] [address] [facility], [address] [address] [address] SERRANO, [facility] [address] [place] [address] [facility] [address] [place] [address] [phone] [facility] [address] - [address] ESCUDERO MACO [address], [facility] [address] [address] PEPE, [place] [address] [facility]. [address], [facility] [address] [address] [facility] [facility] [address] [place], [place] [id number] Additional Instructions: Call your primary care doctor/OBGYN TOMORROW for an appointment during the next 1-2 days.See the doctor sooner or return here if your condition worsens before your appointment time. Unable to rule out spontaneous at this time. Patient will need to follow-up with her M[employer] INTELLIGENCE OFFICER in the next 1-2 days for further monitoring of her symptoms. Patient advised to take full course of antibiotics. Take Tylenol for any pain. DANA BATRES PA-C Jun 01, 2016 14:21
== END 2016-06-01 14:20 | disposition home or self-care (01) ==
LOC: FTE 11:14
DX: O20.9 Hemorrhage in early pregnancy, unspecified (principal); O23.42 Unspecified infection of urinary tract in pregnancy, second trimester; O99.512 Diseases of the respiratory system complicating pregnancy, second trimester; J45.909 Unspecified asthma, uncomplicated; Z87.891 Personal history of nicotine dependence; Z3A.18 18 weeks gestation of pregnancy
CPT/HCPCS: 36415; 76805; 81001; 81003; 84702; 85025; 86900; 86901; Z7502

== ENCOUNTER 2016-11-12 09:20 | Emergency (ER) | payer SELFPAY ==
[~2016-11-12] VITALS: Wt 58.5 kg
[~2016-11-12 09:20] MED LIST changes: +ACET500C5 PO
[2016-11-12] MEDS ORDERED: SULF1TAB31 PO (10:21)
[2016-11-12] MEDS ORDERED: CEPH-443 PO (10:21)
--- NOTE | 2016-11-12 10:26 | ERD ---
ER Documentation Chief Complaint Date/Time DATE: 11/12/16 TIME: 10:23 Chief Complaint possible insect bite ring finger on right hand HPI Patient is a 41-year-old female who presents to the ED with redness and swelling and drainage to her right digit #42 days. She states that she possibly got bit by a bug. She states that it is painful and itchy. Denies fever or chills, cough or shortness of breath. Denies fall or trauma. States that she use Neosporin and hydrogen peroxide with no relief. No other complaints. ROS All systems reviewed and are negative except as per history of present illness. Medications Home Meds Active Scripts Cephalexin* (Keflex*) 500 Mg Capsule, 500 MG PO BID for 7 Days, CAP Prov:MARQUITA MCDONALD-C 11/12/16 Sulfamethoxazole/Trimethoprim* (Bactrim Ds* Tablet) 1 Each Tablet, 1 TAB PO BID , #14 TAB Prov:MARQUITA MCDONALD-C 11/12/16 Cephalexin* (Keflex*) 500 Mg Capsule, 500 MG PO QID for 7 Days, CAP Prov:DANA BATRES-C 06/01/16 Acetaminophen* (Tylophen*) 500 Mg Capsule, 1 CAP PO Q6H Y for PAIN AND OR ELEVATED TEMP, #20 CAP Prov:DANA BATRES PA-C 06/01/16 Acetaminophen* (Tylenol*) 325 Mg Tablet, 2 TAB PO Q6 Y for prn, #20 TAB Prov:NURYILAKENJI BARBOZAAR F 03/15/16 Cephalexin* (Keflex*) 500 Mg Capsule, 500 MG PO QID for 7 Days, CAP Prov:KENJI BONEAR F 03/15/16 Ibuprofen* (Motrin*) 600 Mg Tab, 600 MG PO Q6H Y for PAIN AND OR ELEVATED TEMP, #30 TAB Prov:NERY JOSEPH 02/28/16 Ibuprofen* (Motrin*) 600 Mg Tab, 600 MG PO Q6H Y for PAIN AND OR ELEVATED TEMP, #30 TAB Prov:CHRISTINE HERNANDEZ NP 12/06/15 Cyclobenzaprine Hcl* (Cyclobenzaprine Hcl*) 10 Mg Tablet, 10 MG PO TID, #15 TAB Prov:CHRISTINE HERNANDEZ [employer] MARKETING ANALYST 12/06/15 Hydrocodone/Acetaminophen ([place] 5-325 Tablet) 1 Each Tablet, 1 TAB PO Q6H Y for PAIN, #7 TAB Prov:KAROCHRISTINE VALDIVIA NP 12/06/15 Albuterol Sulfate* (Proair HFA*) 8.5 Gm Hfa.aer.ad, 2 PUFF INH Q4, #1 INHALER Prov:GENE SMITH PA-C 03/06/15 Benzonatate* (Tessalon Perle*) 100 Mg Capsule, 100 MG PO Q8H Y for COUGH, #30 CAP Prov:GENE SMITH PA-C 03/06/15 Fluticasone Propionate (Flonase Allergy Relief) 9.9 Ml [place].susp, 1 SPRAY NASAL DAILY, #1 BOTTLE TO EACH NOSTRIL Prov:GENE SMITH PA-C 03/06/15 Pseudoephedrine Hcl* (Pseudoephedrine Hcl*) 30 Mg Tablet, 30 MG PO Q6 Y for CONGESTION, #30 TAB Prov:GENE SMITH PA-C 03/06/15 Allergies Allergies: Coded Allergies: No Known Allergies (Verified Allergy, Mild, 03/15/16) PMhx/Soc History of Surgery: No Anesthesia Reaction: No Hx Neurological Disorder: No Hx Respiratory Disorders: Yes (ASTHMA; SCOLIOSIS.) Hx Cardiac Disorders: No Hx Psychiatric Problems: Yes (ANXIETY) Hx Miscellaneous Medical Probl: No Hx Alcohol Use: Yes Hx Substance Use: No Hx Tobacco Use: Yes FmHx Family History: No coronary disease, No diabetes, No other Physical Exam Vitals Vital Signs Date Time Temp Pulse Resp B/P Pulse Ox O2 Delivery O2 Flow Rate FiO2 11/12/16 09:22 98.9 110 18 152/99 99 Physical Exam GENERAL: Well-developed, well-nourished female. Appears in no acute distress. slightly agitated HEAD: Normocephalic, atraumatic. EYES: Pupils are equally reactive bilaterally. EOMs grossly intact. No conjunctival erythema. ENT: Moist mucous membranes. No uvula deviation. No kissing tonsils. No exudates. NECK: Supple. No lymphadenopathy or thyromegaly. No meningismus. negative kernig. negative brudinski. LUNG: Clear to auscultation bilaterally. No rhonchi, wheezing, rales or coarse breath sounds. HEART: Regular rate and rhythm. No murmurs, rubs or gallops. Extremities: Equal pulses bilaterally. No peripheral clubbing, cyanosis or edema. No unilateral leg swelling. SKIN: Normal color. Warm and dry. right digit 4 has draining pus lesion slight erythema. no signs of felon. sensation intact. no stepoffs deformities. no streaking. redness localized Capillary refill < 2 seconds Procedures/MDM ER COURSE: I kept the patient and/or family informed of laboratory and diagnostic imaging results throughout the emergency room course. MEDICAL DECISION MAKING: This is a 41 year old female who presents with swelling to right finger x 2 days Vital signs were reviewed. Patient is afebrile. Patient is not hypoxic. Patient has draining abscess. Low suspicion for necrotizing fasciitis, SJS, toxic epidermal necrolysis, erythema multiforme, gangrene, scarlet fever, meningococcemia, sepsis, anaphylaxis, sepsis, deep space infection, or foreign body, felon. DISCHARGE: At this time, patient is stable for discharge and outpatient management with no new complaints during the ER course. Patient was sent home with Bactrim and Keflex and to return in 2 days for wound check. Patient will be discharged home with instructions to recheck for new or worsening symptoms such as fever, nausea , weakness, LOC and to follow up with primary care in the next 1-2 days. Patient was advised to return to the ER for any new or worsening symptoms. Plan was discussed and patient and/or family understands and agrees. Home instructions were given. Departure Diagnosis: Primary Impression: Abscess of finger, right Condition: Stable Patient Instructions: Abscess, Antiobiotic Treatment Only Additional Instructions: Call your primary care doctor TOMORROW for an appointment during the next 1-2 days.See the doctor sooner or return here if your condition worsens before your appointment time. MARQUITA MCDONALD PA-C Nov 12, 2016 10:26
== END 2016-11-12 12:23 | disposition home or self-care (01) ==
LOC: FTE 09:20
DX: L02.511 Cutaneous abscess of right hand (principal); J45.909 Unspecified asthma, uncomplicated
CPT/HCPCS: 99284

== ENCOUNTER 2017-04-04 09:04 | Emergency (ER) | END 2017-04-04 14:22 | disposition home or self-care (01) ==

== ENCOUNTER 2018-04-29 13:46 | Emergency (ER) | payer OTHER ==
[~2018-04-29] VITALS: Ht 162.6 cm; Wt 50.0 kg
[~2018-04-29 13:46] MED LIST changes: -ALBU8.5H3 INH; +ALBU8.5H8 INH; +BENZ-6 PO; -BENZ100C70 PO; -CYCL-319 PO; +CYCL10TA7 PO; +HYDR-4011 PO; -HYDR-906 PO; +SULF1TAB31 PO
[2018-04-29 13:50] VITALS: Ht 162.6 cm; Wt 50.0 kg
[2018-04-29] MEDS ORDERED: SOD CHLORIDE 0.9% 500 ML IV STA (14:09)
[2018-04-29] MEDS ORDERED: ONDANSETRON 4 MG INJ IV STA (14:09)
[2018-04-29] MEDS ORDERED: morphine 4 MG/ML VIAL IV STA (14:09)
--- NOTE | 2018-04-29 15:51 | ERD ---
ER Documentation Chief Complaint Chief Complaint COUGH WITH ABNORMAL VAG BLEEDING X 2.5 WEEKS HPI This is a 42-year-old female who is here for cough for 1 week with occasional white sputum production. She also is complaining of excessive vaginal bleeding for the past month she says for the month of March she bled every single day except for for 5 days in the middle of the month. She is also having some cramps. She says that this is happened before in the past but does not know if she has any ovarian cyst or uterine fibroids. Denies feeling dizzy or syncopal ROS All systems reviewed and are negative except as per history of present illness. Medications Home Meds Active Scripts Cyclobenzaprine Hcl* (Cyclobenzaprine Hcl*) 10 Mg Tablet, 10 MG PO Q12 PRN for PAIN, #15 TAB Prov:NURYILASYDNEY BARBOZA F 04/04/17 Hydrocodone/Acetaminophen ([place] 5-325 Tablet) 1 Each Tablet, 1 TAB PO Q6H PRN for PAIN, #7 TAB Prov:SYDNEY BONE F 04/04/17 Cephalexin* (Keflex*) 500 Mg Capsule, 500 MG PO BID for 7 Days, CAP Prov:KHUSHITARIANMARQUITA PA-C 11/12/16 Sulfamethoxazole/Trimethoprim* (Bactrim Ds* Tablet) 1 Each Tablet, 1 TAB PO BID, #14 TAB Prov:RICHARDSON MCDONALDAZ PA-C 11/12/16 Cephalexin* (Keflex*) 500 Mg Capsule, 500 MG PO QID for 7 Days, CAP Prov:MEDARDODANA Ugalde PA-C 06/01/16 Acetaminophen* (Tylophen*) 500 Mg Capsule, 1 CAP PO Q6H PRN for PAIN AND OR ELEVATED TEMP, #20 CAP Prov:MEDARDODEANASSILLE PA-C 06/01/16 Acetaminophen* (Tylenol*) 325 Mg Tablet, 2 TAB PO Q6 PRN for prn, #20 TAB Prov:PASILAKENJI BARBOZAAR F 03/15/16 Cephalexin* (Keflex*) 500 Mg Capsule, 500 MG PO QID for 7 Days, CAP Prov:PASILAKENJI BARBOZAAR F 03/15/16 Ibuprofen* (Motrin*) 600 Mg Tab, 600 MG PO Q6H PRN for PAIN AND OR ELEVATED TEMP, #30 TAB Prov:OPAL,NERY 02/28/16 Ibuprofen* (Motrin*) 600 Mg Tab, 600 MG PO Q6H PRN for PAIN AND OR ELEVATED TEMP, #30 TAB Prov:CHRISTINE HERNANDEZ NP 12/06/15 Cyclobenzaprine Hcl* (Cyclobenzaprine Hcl*) 10 Mg Tablet, 10 MG PO TID, #15 TAB Prov:CHRISTINE HERNANDEZ NP 12/06/15 Hydrocodone/Acetaminophen ([place] 5-325 Tablet) 1 Each Tablet, 1 TAB PO Q6H PRN for PAIN, #7 TAB Prov:CHRISTINE HERNANDEZ NP 12/06/15 Albuterol Sulfate* (Proair HFA*) 8.5 Gm Hfa.aer.ad, 2 PUFF INH Q4, #1 INHALER Prov:GENE SMITH PA-C 03/06/15 Benzonatate* (Tessalon Perle*) 100 Mg Capsule, 100 MG PO Q8H PRN for COUGH, #30 CAP Prov:GENE SMITH PA-C 03/06/15 Fluticasone Propionate (Flonase Allergy Relief) 9.9 Ml [place].susp, 1 SPRAY NASAL DAILY, #1 BOTTLE TO EACH NOSTRIL Prov:GENE SMITH PA-C 03/06/15 Pseudoephedrine Hcl* (Pseudoephedrine Hcl*) 30 Mg Tablet, 30 MG PO Q6 PRN for CONGESTION, #30 TAB Prov:GENE SMITH PA-C 03/06/15 Allergies Allergies: Coded Allergies: No Known Allergies (Verified Allergy, Mild, 03/15/16) PMhx/Soc History of Surgery: Yes ( x2) Anesthesia Reaction: No Hx Neurological Disorder: No Hx Respiratory Disorders: Yes (ASTHMA) Hx Cardiac Disorders: Yes (HTN) Hx Psychiatric Problems: No Hx Miscellaneous Medical Probl: Yes (scoliosis) Hx Alcohol Use: No Hx Substance Use: No Hx Tobacco Use: Yes (5/day) Smoking Status: Current every day smoker FmHx Family History: No coronary disease Physical Exam Vitals Vital Signs Date Temp Pulse Resp B/P (MAP) Pulse Ox O2 O2 Flow FiO2 Time Delivery Rate 04/29/18 97.9 130 22 179/102 100 13:50 (127) Physical Exam Const: Well-developed, well-nourished Head: Atraumatic, normocephalic Eyes: Normal Conjunctiva, PERRLA, EOMI, normal sclera, no nystagmus ENT: Normal External Ears, Nose and Mouth, moist mucus membranes. Neck: Full range of motion. No meningismus, no lymphadenopathy. Resp: Clear to auscultation bilaterally, no wheezing, rhonchi, rales Cardio: Tachycardia heart rate 108, no murmurs, S1 S2 present] Abd: Soft, mild diffuse pelvic tenderness, non distended. Normal bowel sounds, no guarding or rebound, no pulsitile abdominal masses or bruits Skin: No petechiae or rashes, no ecchymosis , no maculopapular rash Back: No midline or flank tenderness Ext: No cyanosis, or edema, FROM x 4, normal inspection, neurovascularly intact x 4 Neur: Awake and alert, STR 5/5 x 4, sensation intact x 4, no focal findings, cerebellum intact Psych: Normal Mood and Affect Result Diagram: 04/29/18 1422 04/29/18 1422 Results 24 hrs Laboratory Tests Test 04/29/18 14:22 White Blood Count 8.2 10^3/ul Red Blood Count 5.62 10^6/ul Hemoglobin 15.1 g/dl Hematocrit 46.3 % Mean Corpuscular Volume 82.4 fl Mean Corpuscular Hemoglobin 26.9 pg Mean Corpuscular Hemoglobin Concent 32.6 g/dl Red Cell Distribution Width 13.3 % Platelet Count 300 10^3/UL Mean Platelet Volume 11.0 fl Immature Granulocytes % 0.100 % Neutrophils % 47.8 % Lymphocytes % 38.9 % Monocytes % 8.6 % Eosinophils % 3.5 % Basophils % 1.1 % Nucleated Red Blood Cells % 0.0 /100WBC Immature Granulocytes # 0.010 10^3/ul Neutrophils # 3.9 10^3/ul Lymphocytes # 3.2 10^3/ul Monocytes # 0.7 10^3/ul Eosinophils # 0.3 10^3/ul Basophils # 0.1 10^3/ul Nucleated Red Blood Cells # 0.0 10^3/ul Prothrombin Time 12.1 Sec Prothrombin Time Ratio 0.9 INR International Normalized Ratio 0.89 Activated Partial Thromboplast Time 32.0 Sec Sodium Level 144 mmol/L Potassium Level 3.4 mmol/L Chloride Level 105 mmol/L Carbon Dioxide Level 27 mmol/L Anion Gap 12 Blood Urea Nitrogen 10 mg/dl Creatinine 0.72 mg/dl Est Glomerular Filtrat Rate mL/min > 60 mL/min Glucose Level 106 mg/dl Calcium Level 9.5 mg/dl Total Bilirubin 0.0 mg/dl Direct Bilirubin 0.00 mg/dl Indirect Bilirubin 0.0 mg/dl Aspartate Amino Transf (AST/SGOT) 21 IU/L Alanine Aminotransferase (ALT/SGPT) 11 IU/L Alkaline Phosphatase 139 IU/L Total Protein 7.6 g/dl Albumin 4.2 g/dl Globulin 3.40 g/dl Albumin/Globulin Ratio 1.23 Serum HCG, Qualitative NEGATIVE Current Medications Medications Dose Sig/Adela Start Time Status Last (Trade) Ordered Route PRN Stop Time Admin Dose Reason Admin Sodium 500 ml @ Q1H STAT 04/29/18 DC 04/29/18 Chloride 500 mls/hr IV 14:09 04/29/18 15:00 15:08 Morphine 4 mg ONCE STAT 04/29/18 DC 04/29/18 Sulfate IV 14:09 04/29/18 15:00 (morphine) 14:11 Ondansetron 4 mg ONCE STAT 04/29/18 DC 04/29/18 HCl (Zofran IV 14:09 04/29/18 15:00 Inj) 14:11 Procedures/MDM DIAGNOSTIC IMAGING REPORT Patient: NANCY HURST : 1975 Age: 42 Sex: F MR #: [id number] DOS: 04/29/18 1409 Ordering MD: ANGELINE TORRES DO Location: E/R Room/Bed: PROCEDURE: US Pelvis. CLINICAL INDICATION: Vaginal bleeding TECHNIQUE: Multiple sonographic images of the pelvis were obtained utilizing transabdominal and endovaginal technique. The images were reviewed on a PACS workstation. COMPARISON: None. FINDINGS: The uterus is normal in size with a heterogeneous appearance of the myometrium. The uterus measures 6.7 x 3.3 x 4.2 cm. The endometrial stripe is homogeneous in appearance and has the thickness of 4 mm. The right ovary is normal and measures 1.3 x 0.9 x 1.0 cm. There is Doppler flow identified. The left ovary was not visualized. No free fluid is present within the pelvis. RPTAT: AA IMPRESSION: Heterogeneous uterus with no discrete mass. Left ovary not visualized. .Souleymane Gallegos MD, MD Date Time Electronically viewed and signed by .Souleymane Gallegos MD, on 04/29/2018 15:16 .S/ CC: ANGELINE TORRES DO [id number] Patient has stable blood work with no anemia. No evidence of fibroid or right ovarian cyst cannot visualize left ovary. She is to have assisted producing excess hormones. Will treat for dysfunctional uterine bleeding with Sprintec x2 Departure Diagnosis: Primary Impression: Dysfunctional uterine bleeding Additional Impression: Bronchitis Condition: Stable ANGELINE TORRES DO Apr 29, 2018 15:51
[2018-04-29] MEDS ORDERED: ALBU8.5H8 INH (16:03)
[2018-04-29] MEDS ORDERED: NORG1TAB14 PO (16:03)
[2018-04-29] MEDS ORDERED: AZIT250T PO (16:03)
[2018-04-29 16:42] VITALS: BP 118/65; PULSE 65; RESP 18
== END 2018-04-29 16:43 | disposition home or self-care (01) ==
LOC: E/R 13:46
DX: N93.8 Other specified abnormal uterine and vaginal bleeding (principal); J40 Bronchitis, not specified as acute or chronic; I10 Essential (primary) hypertension; F17.210 Nicotine dependence, cigarettes, uncomplicated; R10.2 Pelvic and perineal pain
CPT/HCPCS: 36415; 76830; 76856; 80053; 84703; 85025; 85610; 85730; 96361; 96374; 96375; J2270; J2405; J7040; Z7502; Z7610